=== PATIENT | male | born 1970 | race Caucasian/White ===

== ENCOUNTER → 2024-05-21 10:43 | Outpatient (REF) | payer BC, SELFPAY | LOC: HWRAD 10:43 | PROVIDERS: ATTENDING PHYSICIAN Nurse Practitioner Family | DX: N50.89 Other specified disorders of the male genital organs (principal) | CPT/HCPCS: 76870; 93976 ==

== ENCOUNTER 2024-10-31 06:11 | Day surgery (SDC) | payer BC, SELFPAY ==
[2024-10-23 08:47] LABS: Hematocrit 46.3 % (39.0-52.0); Hemoglobin 16.3 g/dL (13.0-18.0); Mean Corp Hgb Conc. 35.2 g/dL (33.0-37.0); Mean Corpuscular Hgb 30.6 pg (27.0-31.0); Mean Corpuscular Volume 86.9 fL (80.0-94.0); Mean Platelet Volume 9.5 fL (7.4-10.4); Platelet Count 168 10^3/uL (130-400); Red Blood Cell Count 5.33 10^6/uL (4.70-6.10); Red Cell Dist. Width 12.7 % (11.5-14.5); White Blood Cell Count 6.5 10^3/uL (4.8-10.8)
[2024-10-23 09:16] LABS: Blood Urea Nitrogen 24 mg/dl (9-20); Calcium 9.9 mg/dl (8.4-10.2); Carbon Dioxide 29 mmol/L (22-30); Chloride 104 mmol/L (98-107); Glucose 93 mg/dl (70-99); Sodium 143 mmol/L (135-145); eGFR > 60.00
[2024-10-23 14:03] VITALS: BMI 37.8
[2024-10-31] VITALS (9 sets, daily range): BP systolic 130–179; BP diastolic 80–104; BMI 37.8
[2024-10-31] MEDS: NORMOSOL-R/PLASMALYTE-A 1000 IV (07:10)
[2024-10-31] MEDS: MOTRIN 600 MG PO (10:28)
== END 2024-10-31 11:05 | disposition home or self-care (01) ==
LOC: SDS 06:11
PROVIDERS: ATTENDING PHYSICIAN Specialist; FAMILY PHYSICIAN Nurse Practitioner Family
DX: N43.3 Hydrocele, unspecified (principal); N43.41 Spermatocele of epididymis, single
CPT/HCPCS: 55040; 88302; 80048; 85027; 93005